=== PATIENT | male | born 1970 | race African-American/Black ===

== ENCOUNTER 2021-11-17 18:45 | Emergency (ER) | payer OTHER ==
[2021-11-17] MEDS ORDERED: KEFLEX250 MG PO (20:26)
== END 2021-11-17 20:40 | disposition home or self-care (01) ==
LOC: FER 18:45
DX: S69.91XA Unspecified injury of right wrist, hand and finger(s), initial encounter (principal); F17.200 Nicotine dependence, unspecified, uncomplicated; I10 Essential (primary) hypertension; Z23 Encounter for immunization; W23.1XXA Caught, crushed, jammed, or pinched between stationary objects, initial encounter; Y92.69 Other specified industrial and construction area as the place of occurrence of the external cause; Y99.0 Civilian activity done for income or pay; Z28.310 Unvaccinated for COVID-19
CPT/HCPCS: 73130; 90471; 90715